=== PATIENT | male | born 1975 | race Hispanic/Latino ===

== ENCOUNTER 2016-11-26 12:38 | Emergency (ER) | payer OTHER ==
[2016-11-26 12:43] VITALS: BP 148/83; PULSE 91; RESP 16; TEMP 98.1; O2SAT 100
[2016-11-26 12:46] VITALS: BMI 26.4
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
--- NOTE | 2016-11-26 14:37 | RAD ---
PROCEDURE: Cervical Spine Radiographs. HISTORY: Pain. COMPARISON: None. FINDINGS: BONES: There is mild straightening of the cervical curvature without spondylolisthesis. No fracture. Dens Intact. DISC SPACES: Mild multilevel cervical spondylosis appreciate primarily at C5-6 but also at C4-5 as well. SOFT TISSUES: Normal. No prevertebral soft tissue swelling. OTHER FINDINGS: None. IMPRESSION: Multilevel mid cervical spondylosis without fracture or spondylolisthesis. CT or MRI available follow-up if clinically warranted.
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
--- NOTE | 2016-11-26 14:39 | RAD ---
PROCEDURE: Left Knee Radiographs. HISTORY: Pain. COMPARISON: None. FINDINGS: BONES: No fractures identified. There is no suspicious lytic or blastic change either. JOINTS: Normal. No osteoarthritis. JOINT EFFUSION: None. OTHER FINDINGS: None. IMPRESSION: Normal radiographs of the left knee.
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
== END 2016-11-26 14:30 | disposition home or self-care (01) ==
LOC: H.ER 12:38
DX: S39.012A Strain of muscle, fascia and tendon of lower back, initial encounter (principal); S16.1XXA Strain of muscle, fascia and tendon at neck level, initial encounter; S63.602A Unspecified sprain of left thumb, initial encounter; S83.92XA Sprain of unspecified site of left knee, initial encounter; V43.52XA Car driver injured in collision with other type car in traffic accident, initial encounter; Y92.410 Unspecified street and highway as the place of occurrence of the external cause